=== PATIENT | male | born 1935 | race Asian ===

== ENCOUNTER 2024-12-13 18:06 | Inpatient (IN) | payer MEDICARE, OTHER, MEDICAID ==
[~2024-12-13] VITALS: Ht 172.7 cm; Wt 67.1 kg
[2024-12-13 20:59] LABS: COVID AG,FIA SOURCE NASAL SWAB
[2024-12-13 21:10] LABS: APPEARANCE,URINE CLEAR (CLEAR); GLUCOSE, URINE (UA) NEGATIVE (NEGATIVE); LEUKOCYTE ESTERASE ,URINE NEGATIVE (NEGATIVE); NITRATE,URINE NEGATIVE (NEGATIVE); OCCULT BLOOD,URINE NEGATIVE (NEGATIVE); PH,URINE DRUG SCREEN 7.0 (5.0-8.0); SPECIFIC GRAVITIY, URINE 1.009 (1.003-1.030)
[2024-12-13 21:16] LABS: ALCOHOL, URINE DRUG SCREEN NEGATIVE (NEGATIVE); AMPHET/METH SCREEN,URINE NEGATIVE (NEGATIVE); BARBITURATE SCREEN, URINE NEGATIVE (NEGATIVE); CANNABINOID SCREEN,URINE NEGATIVE (NEGATIVE); COCAINE SCREEN,URINE NEGATIVE (NEGATIVE); METHADONE SCREEN, URINE NEGATIVE (NEGATIVE)
[2024-12-13 21:25] LABS: SARS-COV2 (COVID) ANTIGEN,FIA Negative (Negative)
[2024-12-14] VITALS (11 sets, daily range): BP systolic 122–175; BP diastolic 54–97; PULSE 56–89; RESP 14–18; TEMP 96.8–98.1; O2SAT 96–100
[2024-12-14] MEDS: ZOLPIDEM TARTRATE 10 MG TABLET PO PRN (01:09)
[2024-12-14] MEDS ORDERED: PNEUMOCOCCAL VACCINE POLYVALENT 0.5 ML SYRINGE [PPSV23] IM. ONE (04:30)
[2024-12-14] MEDS ORDERED: INFLUENZA VIRUS VACCINE TVS (6MO+) 2025-26/PF 45 MCG/0.5 ML SYRINGE IM. ONE (04:30)
[2024-12-14 09:05] LABS: PLATELET COUNT (AUTO) 158 K/uL (150-450); RED BLOOD CELL COUNT(AUTO) 3.67 MIL/uL (4.50-5.90); RED CELL DISTRIBUTION WIDTH 16.9 % (11.5-14.5); WHITE BLOOD COUNT (AUTO) 4.9 K/uL (4.5-11.0)
[2024-12-14 09:34] LABS: ASPARTATE AMINOTRANSFERASE 22 U/L (15-37); CALCIUM, TOTAL 8.4 mg/dL (8.8-10.5); CHOL/HDL RATIO 1.9 (4.2-7.3); CREATININE 1.11 mg/dL (0.60-1.30); GLOMERULAR FILTR. RATE CALC > 60 mL/min (>60); GLUCOSE,RANDOM 84 mg/dL (70-110); LDL CHOL (CALC.) 42 mg/dL (0-130); SODIUM SERUM 142 mmol/L (136-145); TOTAL PROTEIN, SERUM 6.2 g/dL (6.4-8.2); UREA NITROGEN, BLOOD 14 mg/dL (7-18)
[2024-12-14] MEDS ORDERED: ACETAMINOPHEN 325 MG TABLET PO PRN ×2 (10:00)
[2024-12-14] MEDS ORDERED: MAG HYDROX/ALUMINUM HYD/SIMETH ES 30 ML SUSPENSION UDCUP PO PRN ×2 (10:00)
[2024-12-14] MEDS ORDERED: GuaiFENesin/D-METHORPHAN [SUGAR-FREE] 200-20MG/10 ML SYRUP UDCUP PO PRN ×2 (10:00)
[2024-12-14] MEDS ORDERED: PETROLATUM,WHITE 28 GM JELLY TP PRN ×2 (10:00)
[2024-12-14] MEDS ORDERED: ALBUTEROL SULFATE HFA 90 MCG/PUFF 8 GM INHALER IH PRN ×2 (10:00)
[2024-12-14] MEDS ORDERED: ONDANSETRON 4 MG TABLET PO PRN ×2 (10:00)
[2024-12-14] MEDS ORDERED: DOCUSATE SODIUM 100 MG CAPSULE PO PRN ×2 (10:00)
[2024-12-14] MEDS ORDERED: LOPERAMIDE HCL 2 MG CAPSULE PO PRN (10:00)
[2024-12-14] MEDS ORDERED: MAGNESIUM HYDROXIDE SUSPENSION 30 ML UDCUP PO PRN ×2 (10:00)
[2024-12-14] MEDS ORDERED: NICOTINE 14 MG/24 HOUR PATCH TD PRN ×2 (10:00)
[2024-12-14] MEDS: DIVALPROEX SODIUM 250 MG DR TABLET PO SCH (17:04)
[2024-12-14] MEDS: TAMSULOSIN HCL 0.4 MG CAPSULE PO SCH (20:33)
[2024-12-14] MEDS: ATORVASTATIN CALCIUM 40 MG TABLET PO SCH (20:33)
[2024-12-15 06:06] VITALS: BP 140/65; PULSE 65; RESP 18; TEMP 97.8; O2SAT 99
[2024-12-15 08:32] VITALS: BP 137/61; PULSE 55; RESP 18; TEMP 98.3; O2SAT 98
[2024-12-15 20:19] VITALS: RESP 18
[2024-12-16 09:00] VITALS: BP 142/68; PULSE 72; RESP 18; TEMP 97.1; O2SAT 100
[2024-12-16 11:07] VITALS: BP 142/68; PULSE 72; RESP 18; TEMP 97.1; O2SAT 100
[2024-12-16 20:31] VITALS: BP 158/61; PULSE 69; RESP 17; TEMP 97.5; O2SAT 98
[2024-12-17 08:16] VITALS: BP 128/60; PULSE 64; RESP 17; TEMP 97.5; O2SAT 96
[2024-12-17 22:11] VITALS: BP 154/64; PULSE 70; RESP 16; TEMP 97.6; O2SAT 98
[2024-12-18 08:25] VITALS: BP 125/55; PULSE 78; RESP 18; TEMP 98.2; O2SAT 97
[2024-12-18 20:20] VITALS: BP 128/66; PULSE 72; RESP 18; TEMP 98.3; O2SAT 98
[2024-12-19 08:18] VITALS: BP 138/70; PULSE 65; RESP 18; TEMP 98; O2SAT 98
[2024-12-19] MEDS ORDERED: DIVA-111 PO (14:59)
[2024-12-19] MEDS ORDERED: TAMS0.4C94 PO (15:01)
[2024-12-19] MEDS ORDERED: ATOR40TA28 PO (15:02)
[2024-12-19 16:01] VITALS: BP 152/72; PULSE 89; RESP 17; TEMP 98.3; O2SAT 97
== END 2024-12-19 17:32 | DRG 885 ==
LOC: EMS 18:06 → B2X 12-14 01:50
PROVIDERS: ADMIT Psychiatry & Neurology Psychiatry; ATTEND Psychiatry & Neurology Psychiatry
PROC: GZ52ZZZ Individual Psychotherapy, Cognitive (ICD-10-PCS; 2024-12-14)
PROC: GZHZZZZ Group Psychotherapy (ICD-10-PCS; principal; 2024-12-16)
DX: F29 Unspecified psychosis not due to a substance or known physiological condition (principal); G47.33 Obstructive sleep apnea (adult) (pediatric); F03.92 Unspecified dementia, unspecified severity, with psychotic disturbance; E11.9 Type 2 diabetes mellitus without complications; I10 Essential (primary) hypertension; Z20.822 Contact with and (suspected) exposure to COVID-19; K21.9 Gastro-esophageal reflux disease without esophagitis; E78.5 Hyperlipidemia, unspecified; N40.0 Benign prostatic hyperplasia without lower urinary tract symptoms; I25.10 Atherosclerotic heart disease of native coronary artery without angina pectoris; D64.9 Anemia, unspecified; X58.XXXA Exposure to other specified factors, initial encounter; S50.12XA Contusion of left forearm, initial encounter; S50.11XA Contusion of right forearm, initial encounter; Y93.89 Activity, other specified; Z86.73 Personal history of transient ischemic attack (TIA), and cerebral infarction without residual deficits; Z79.899 Other long term (current) drug therapy; Z88.8 Allergy status to other drugs, medicaments and biological substances
CPT/HCPCS: 80053; 80061; 80307; 81003; 83036; 84436; 84439; 84443; 85025; 87081; 90686; 90732; 99285